=== PATIENT | male | born 1990 | race African-American/Black ===

== ENCOUNTER 2017-05-04 08:15 | Emergency (ER) | payer MEDICAID, OTHER ==
[~2017-05-04] VITALS: Ht 193 cm; Wt 116.0 kg
[2017-05-04] MEDS ORDERED: CLINDAMYCIN PHOSPHATE 600MG/4ML VIAL IM ONE (09:00)
[2017-05-04 09:30] VITALS: BP 127/66
== END 2017-05-04 09:32 | disposition home or self-care (01) ==
LOC: ER 08:15
DX: L03.115 Cellulitis of right lower limb (principal)
CPT/HCPCS: 96372; 99283; J3490

== ENCOUNTER 2017-06-21 14:46 | Emergency (ER) | payer MEDICAID ==
[~2017-06-21] VITALS: Ht 193 cm; Wt 118.0 kg
[2017-06-21 14:53] VITALS: BP 142/86
== END 2017-06-21 17:15 | disposition left against medical advice (07) ==
LOC: ER 14:46
DX: Z53.21 Procedure and treatment not carried out due to patient leaving prior to being seen by health care provider (principal)